=== PATIENT | male | born 1955 | race Caucasian/White ===

== ENCOUNTER 2017-02-25 20:25 | Emergency (ER) | payer MEDICARE, MEDICAID ==
[~2017-02-25] VITALS: Ht 167.6 cm; Wt 68.0 kg
[~2017-02-25 20:25] MED LIST: AMIO100T4 PO; AMLO10TA80 PO; ASPI-1159 PO; CALC667C4 PO; CHOL100044 PO; CINA30 PO; FOLI-43 PO; FOLI1TAB87 PO; GABA-529 PO; HYDR100T26 PO; LOSA100T14 PO; PRAV20TA57 PO; TRIC54 GT
[2017-02-25 20:34] VITALS: BP 136/76
== END 2017-02-26 | disposition left against medical advice (07) ==
LOC: ER 20:25
DX: Z53.21 Procedure and treatment not carried out due to patient leaving prior to being seen by health care provider (principal)